=== PATIENT | male | born 1935 | race Caucasian/White ===

== ENCOUNTER 2017-05-09 19:53 | Emergency (ER) | payer OTHER ==
--- NOTE | 2017-05-09 20:25 | PDOC ---
Rapid Medical Evaluation Time Seen by Provider: 05/09/17 20:16 Medical Evaluation: Allergies Allergy/AdvReac Type Severity Reaction Status Date / Time No Known Allergies Allergy Verified 08/25/13 10:42 05/09/17 20:19 I have performed a brief in-person evaluation of this patient. The patient presents with a chief complaint of: "pink eye" x 1 week, put "some drops in it thinking it was pinkeye". hx asthma, HTN. Denies change in vision, itching, headache. Pertinent physical exam findings: subconjunctival hemorrhage I have ordered the following: nothing The patient will proceed to the ED for further evaluation. Discharge Disposition - Diagnosis Subconjunctival hemorrhage - Referrals - Patient Instructions - Post Discharge Activity
[2017-05-09 20:26] VITALS: BP 154/69; PULSE 88; TEMP 98.9; BMI 26.4
--- NOTE | 2017-05-09 21:58 | PDOC ---
History of Present Illness - General Chief Complaint: Eye Problem Stated Complaint: PINK EYE Time Seen by Provider: 05/09/17 20:16 History Source: Patient Exam Limitations: No Limitations - History of Present Illness Initial Comments: 05/09/17 21:54 Shouldn't came with family for evaluation of left eye that is red. States was acute onset noted yesterday. daughter was concerned. Patient denies visual changes, any drainage from eye, no recent trauma or pain. Timing/Duration: unsure Severity: mild, moderate Past History - Past Medical History Allergies/Adverse Reactions: Allergies Allergy/AdvReac Type Severity Reaction Status Date / Time No Known Allergies Allergy Verified 05/09/17 20:22 Home Medications: Ambulatory Orders Albuterol Sulfate Inhaler - [Ventolin HFA Inhaler -] 2 inh PO Q4H #1 inh Hydrochlorothiazide [Hctz -] 1 tab PO DAILY 02/03/14 Lisinopril [Prinivil -] 40 mg PO DAILY 02/03/14 Aspirin Coated [Ecotrin -] 81 mg PO DAILY 02/04/14 Montelukast Na [Singulair -] 10 mg PO HS 02/04/14 Ranitidine [Zantac -] 150 mg PO DAILY 02/04/14 Salmeterol/Fluticasone [Advair 500Mcg/50Mcg -] 1 inh PO BID 02/04/14 Anemia: No Asthma: Yes Cancer: No Cardiac Disorders: No CVA: No COPD: No CHF: No Dementia: No Diabetes: No GI Disorders: No Disorders: No HTN: Yes Hypercholesterolemia: Yes Liver Disease: No Thyroid Disease: No - Surgical History Abdominal Surgery: Yes (HERNIA) Appendectomy: No Cardiac Surgery: No Cholecystectomy: No Lung Surgery: No Neurologic Surgery: No Orthopedic Surgery: No - Suicide/Smoking/Psychosocial Hx Smoking History: Former smoker Have you smoked in the past 12 months: No If you are a former smoker, when did you quit?: 1985 Information on smoking cessation initiated: No Hx Alcohol Use: No Drug/Substance Use Hx: No Substance Use Type: None Review of Systems - Review of Systems Able to Perform ROS?: Yes Is the patient limited Icelandic proficient: Yes Constitutional: Yes: See HPI. No: Symptoms Reported, Fever, Malaise HEENTM: Yes: Symptoms Reported, See HPI, Cataracts (street but patient has not opted for surgical excision). No: Eye Pain, Blurred Vision, Tearing, Recent change in vision, Double Vision Respiratory: Yes: See HPI. No: Symptoms reported, Cough Cardiac (ROS): No: Symptoms Reported ABD/GI: Yes: See HPI. No: Symptoms Reported, Nausea, Vomiting Integumentary: No: Symptoms Reported All Other Systems: Reviewed and Negative *Physical Exam - Vital Signs Last Vital Signs Temp Pulse Resp BP Pulse Ox 98.9 F 88 20 154/69 96 05/09/17 20:23 05/09/17 20:23 05/09/17 20:23 05/09/17 20:23 05/09/17 20:23 - Physical Exam General Appearance: Yes: Nourished, Appropriately Dressed. No: Apparent Distress HEENT: positive: AMY, Normal ENT Inspection, TMs Normal, Pharynx Normal, Other (patient with 50% subconjunctival hemorrhage noted to the medial aspect of left eye. Visual acuity is within normal limits. No drainage, tearing, or pain to that eye.). negative: Rhinorrhea, Sinus Tenderness Neck: positive: Supple. negative: Tender Respiratory/Chest: positive: Lungs Clear Extremity: positive: Normal Capillary Refill, Normal Inspection, Normal Range of Motion Integumentary: positive: Normal Color, Dry, Warm Neurologic: positive: chemical dependency professional II-XII NML intact, Fully Oriented, Alert, Normal Mood/ Affect, Normal Response, Motor Strength 5/5 *DC/Admit/Observation/Transfer Diagnosis at time of Disposition: Subconjunctival hemorrhage - Discharge Dispostion Disposition: HOME Condition at time of disposition: Stable Admit: No - Referrals Referrals: Nando Alvarado MD [Staff Physician] - - Patient Instructions Printed Discharge Instructions: DI for Subconjunctival Hemorrhage Additional Instructions: Rest, avoid rubbing eyes This condition is not dangerous and will resolve within probably 2 weeks. Followup with ophthalmology or private physician as needed - Post Discharge Activity
== END 2017-05-09 22:01 | disposition home or self-care (01) ==
LOC: JERFT 19:53
PROC: 4A07X0Z Measurement of Visual Acuity, External Approach (ICD-10-PCS; principal; 2017-05-09)
DX: H11.32 Conjunctival hemorrhage, left eye (principal); I10 Essential (primary) hypertension; J45.909 Unspecified asthma, uncomplicated; E78.00 Pure hypercholesterolemia, unspecified
CPT/HCPCS: 99173; 99281-25

== ENCOUNTER 2024-04-27 13:38 | Emergency (ER) | payer OTHER ==
[2024-04-27 13:53] VITALS: BMI 29.2
[2024-04-27 14:22] VITALS: BP 161/69; PULSE 114; RESP 18; TEMP 101.6
[2024-04-27] MEDS ORDERED: ACETAMINOPHEN INJECTION 100 ML ONE (14:37)
[2024-04-27] MEDS: SODIUM CHLORIDE 0.9% 500 ML INFUS.BAG IV ONE (14:52)
[2024-04-27] MEDS: ACETAMINOPHEN 1000 MG/100 ML BAG IVPB ONE (14:52)
[2024-04-27 14:59] LABS: BASO % 0.8 % (0-2.0); EOS % 3.3 % (0-4.5); HEMATOCRIT 37.3 % (35.4-49); HEMOGLOBIN 12.6 GM/dL (11.7-16.9); MCH 30.8 pg (25.7-33.7); MCHC 33.8 g/dl (32.0-35.9); MEAN PLT VOLUME 10.1 fl (7.5-11.1); MONO % 18.5 % (3.8-10.2); NEUT % 67.4 % (42.8-82.8); PLATELET COUNT 143 10^3/uL (134-434); RDW 13.1 % (11.9-15.9); WHITE BLOOD COUNT 9.2 K/mm3 (4.0-10.0)
[2024-04-27 15:29] LABS: ALBUMIN 3.9 g/dl (3.4-5.0); BLOOD UREA NITROGEN 22.7 mg/dL (7-18); CALCIUM 9.4 mg/dL (8.5-10.1)
[2024-04-27 15:33] LABS: CREATININE 1.7 mg/dL (0.55-1.3)
[2024-04-27 15:34] LABS: BILIRUBIN,TOTAL 1.4 mg/dL (0.2-1)
== END 2024-04-27 17:09 | disposition home or self-care (01) ==
LOC: JER 13:38
PROC: 3E033NZ Introduction of Analgesics, Hypnotics, Sedatives into Peripheral Vein, Percutaneous Approach (ICD-10-PCS; principal; 2024-04-27)
DX: R50.9 Fever, unspecified (principal); R05.9 Cough, unspecified; J34.89 Other specified disorders of nose and nasal sinuses; R00.0 Tachycardia, unspecified; R09.89 Other specified symptoms and signs involving the circulatory and respiratory systems; Z20.822 Contact with and (suspected) exposure to COVID-19
CPT/HCPCS: 0241U-QW; 36415; 71045-TC-FY; 80053; 85025; 93005; 93010; 96374; 99285-25; J0131